=== PATIENT | male | born 1950 | race Caucasian/White ===

== ENCOUNTER 2021-04-12 22:58 | Outpatient (CLI) | payer MEDICARE | END 2021-04-12 22:59 | disposition EMS.NT | LOC: EMS 22:58 | DX: Z03.89 Encounter for observation for other suspected diseases and conditions ruled out (principal) ==

== ENCOUNTER 2021-08-07 12:52 | Outpatient (CLI) | payer MEDICARE | END 2021-08-07 12:53 | disposition left against medical advice (07) | LOC: EMS 12:52 | DX: R41.0 Disorientation, unspecified (principal); E11.649 Type 2 diabetes mellitus with hypoglycemia without coma ==

== ENCOUNTER → 2021-11-18 | Outpatient (CLI) | payer MEDICARE | END | disposition short-term general hospital (02) | LOC: EMS 17:43 | DX: R53.1 Weakness (principal); R05.9 Cough, unspecified; R50.9 Fever, unspecified; R40.0 Somnolence; Z99.2 Dependence on renal dialysis | CPT/HCPCS: A0425; A0429; A0888 ==